=== PATIENT | male | born 1980 | race Caucasian/White ===

== ENCOUNTER 2021-05-05 09:55 | Outpatient (RCR) | payer OTHER, SELFPAY ==
[2021-05-05] MEDS: FAMOTIDINE 20 MG TABLET PO (16:04)
[2021-05-05] MEDS: diphenhydrAMINE HCl CAP 25 MG CAPSULE PO (16:04)
[2021-05-05] MEDS: ACETAMINOPHEN 325 MG TABLET 650 MG PO (16:04)
[2021-05-05 16:09] VITALS: BP 138/81; PULSE 77; RESP 20; TEMP 36.9; O2SAT 99
[2021-05-05 17:06] VITALS: BP 142/77
--- NOTE | 2021-05-06 10:12 | PC.NURSE ---
Called Mr Villanueva stated he had an upset stomach last night with low grade fever,and he is doing well today. He has no other questions at this time.
== END 2021-05-05 17:00 ==
LOC: AMCINF 09:55
PROVIDERS: PCP Family Medicine; Visit Provider Internal Medicine Hematology & Oncology
DX: U07.1 COVID-19 (principal)
CPT/HCPCS: A9270; M0243; Q0244

== ENCOUNTER 2021-09-19 12:34 | Emergency (ER) | payer OTHER, SELFPAY ==
[2021-09-19 12:45] VITALS: BP 148/79; PULSE 92; RESP 18; TEMP 37.2; O2SAT 99
--- NOTE | 2021-09-19 13:55 | ED.GENADULT ---
HPI - General Adult General Chief complaint: Skin/Abscess/Foreign Body Stated complaint: spot on top of head and spreading down Source: patient Mode of arrival: ambulatory Limitations: no limitations History of Present Illness HPI narrative: Patient presents for evaluation of painful lesions to the left side of the face and scalp that started five days ago. He denies any new lotions, soaps, detergents, topical products. He states the lesions have a blistered appearance. He has not conducted any work outdoors where he could have been exposed to poison andrea/oak/sumac. He has some mild pruritis but states they are more painful than pruritic. He rates pain 4/10 in severity. He did have chickenpox in the past. He does not wear glasses or contacts. Over the past 24 hrs he has felt some irritation in left eye and mild blurred vision. No other visual disturbance. He reports some lesions to left eyebrow. He has not been using any therapies to assist with his symptoms. Related Data Home Medications Medication Instructions Recorded Confirmed amlodipine 5 mg PO DAILY 05/11/19 05/05/21 atorvastatin 40 mg PO DAILY 05/11/19 05/05/21 fenofibrate nanocrystallized 145 mg PO DAILY 05/11/19 05/05/21 metformin 500 mg PO BID 05/11/19 05/05/21 omega-3 fatty acids-fish oil [Fish 1 cap PO DAILY 05/11/19 05/05/21 Oil] vitamin B complex [B 1 tablet PO DAILY 05/11/19 05/05/21 Complex-Vitamin B12] Allergies Allergy/AdvReac Type Severity Reaction Status Date / Time Penicillins Allergy Mild rash/hives Verified 05/05/21 16:03 Review of Systems Review of Systems: CONSTITUTIONAL: Denies fever, chills, or sweats. EYES:Reports some irritation of left eye with mild blurred vision. Denies redness ENT: Denies rhinorrhea, congestion, sore throat, or otalgia. CARDIOVASCULAR: Denies chest pain, palpitations, or edema. RESPIRATORY: Denies cough or dyspnea. GASTROINTESTINAL: Denies abdominal pain, nausea, vomiting, or diarrhea. GENITOURINARY: Denies dysuria or hematuria. SKIN: Reports painful lesions to left side of the face and scalp MUSCULOSKELETAL: Denies back pain, joint pain, or myalgia. NEUROLOGIC: Denies headache, numbness, dizziness, or weakness. PSYCHIATRIC: Denies anxiety or depression. [facility] Past Medical History Medical History Diabetes mellitus, type II HLD (hyperlipidemia) HTN (hypertension) Scalp cyst Shingles Surgical History Surgical History History of placement of ear tubes Hx of tonsillectomy Family History Family History Mother Diabetes mellitus Hypertension Social History Social History Smoking packs per day: 0.5 Smoking cigarettes per day: 10.0 Years smoked: 25 Smoking pack-years: 12.50 Smoking status: Current every day smoker Tobacco type: cigarettes Substance use: never Living arrangements: with family Gender identity (if verbalized by the patient): Male Spiritual care concerns: No Exam Narrative: GENERAL: Well-appearing, well-nourished, and in no acute distress. HEAD: Normocephalic, atraumatic. EYES: PERRLA and EOMI. No dye uptake noted with fluorescein stain and Wood's lamp evaluation ENT: Nares clear, no rhinorrhea or epistaxis. Mucous membranes moist. Oropharynx without tonsillar hypertrophy exudate or other lesions. Bilateral TMs pearly rubalcava nonbulging NECK: Supple. No adenopathy or masses. No carotid bruits or JVD CHEST: Clear to auscultation. No respiratory distress. No wheezes rales or rhonchi HEART: Regular rate and rhythm. No murmur heard. Normal peripheral pulses. ABDOMEN: Soft, nontender, nondistended, normal active bowel sounds. EXTREMITIES: Normal range of motion. No edema. SKIN: Erythematous vesicular rash to the left side of the fr
== END 2021-09-19 13:28 | disposition home or self-care (01) ==
PROVIDERS: Emergency Provider Nurse Practitioner; PCP Family Medicine
DX: B02.9 Zoster without complications (principal); E11.9 Type 2 diabetes mellitus without complications; E78.5 Hyperlipidemia, unspecified; I10 Essential (primary) hypertension; F17.210 Nicotine dependence, cigarettes, uncomplicated
CPT/HCPCS: 99213; A9270; G0463

== ENCOUNTER 2021-12-24 16:26 | Emergency (ER) | payer OTHER, SELFPAY ==
--- NOTE | ~2021-12-24 | XR_ITS ---
EXAMINATION: XR chest 2V 12/24/2021 17:03 INDICATION: Cough for 2-3 weeks. Bronchitis. PROCEDURE: 2 view chest COMPARISON: No prior studies for comparison. FINDINGS: The lungs are clear. The cardiomediastinal silhouette is within normal limits. There are no pleural effusions. There is no pneumothorax suspected. IMPRESSION: 1: NO ACUTE CARDIOPULMONARY DISEASE. Reviewed, dictated and finalized at location A.
[2021-12-24 16:33] VITALS: BP 145/78; PULSE 74; RESP 16; TEMP 36.6; O2SAT 100
--- NOTE | 2021-12-24 17:02 | ED.URI ---
HPI - URI/Sore Throat General Chief Complaint: Upper Respiratory Infection Stated Complaint: Chest Congestion Time Seen by Provider: 12/24/21 17:00 History of Present Illness HPI Narrative: 41 y/o male with hx diabetes presented for c/o worsening sob and wheezing over the last 3 weeks, symptoms worsening for one week. Cough is nonproductive, endorses fatigue and sob with exertion. Denies cp, palpitations, n/v/d fever or chills. Taking mucinex for symptoms. States he had pneumonia after covid one year ago and feels lungs have not been the same since then. Smokes 1/2ppd. Related Data Home Medications Medication Instructions Recorded Confirmed amlodipine 5 mg tablet 5 mg PO DAILY 05/11/19 12/24/21 atorvastatin 40 mg tablet 40 mg PO DAILY 05/11/19 12/24/21 metformin 500 mg tablet 500 mg PO BID 05/11/19 12/24/21 Allergies Allergy/AdvReac Type Severity Reaction Status Date / Time Penicillins Allergy Mild rash/hives Verified 12/24/21 16:44 Review of Systems Review of Systems: CONSTITUTIONAL: Denies body aches, fever, chills, or sweats. EYES: Denies visual changes, redness, or discharge. ENT: Denies rhinorrhea, congestion, or otalgia. CARDIOVASCULAR: Denies chest pain, palpitations, or edema. RESPIRATORY: reports sob, cough GASTROINTESTINAL: Denies abdominal pain, nausea, vomiting, or diarrhea. SKIN: Denies rash, itching, or wounds. MUSCULOSKELETAL: Denies back pain, joint pain, or myalgia. NEUROLOGIC: Denies headache PMFSH Past Medical History Medical History Diabetes mellitus, type II HLD (hyperlipidemia) HTN (hypertension) Scalp cyst Shingles Surgical History Surgical History History of placement of ear tubes Hx of tonsillectomy Family History Family History Mother Diabetes mellitus Hypertension Social History Social History Smoking packs per day: 0.5 Smoking cigarettes per day: 10.0 Years smoked: 25 Smoking pack-years: 12.50 Smoking status: Current every day smoker Tobacco type: cigarettes Substance use: never Gender identity (if verbalized by the patient): Male Spiritual care concerns: No Exam Narrative: GENERAL: well-appearing EYES: conjunctivae clear ENT: Mucous membranes moist. TM pearly rubalcava with normal light reflex bilaterally; no tragal tenderness. Oropharynx erythematous without lesions. CHEST: Clear to auscultation, breath sounds equal. No respiratory distress, speaks in full sentences. HEART: Regular rate and rhythm. No murmur heard. SKIN: Warm, dry, no rash. NEURO: Alert and oriented x3. Course Course Emergency Course: Patient is aware of diagnosis, understands and agrees to treatment plan. Anticipatory guidance given. Patient agrees to follow-up as directed and is aware of reasons to seek care at the emergency department. Portions of this record may have been created with voice recognition software Level of Care: Express Care Visit Vital Signs Vital signs: Vital Signs Temperature 97.9 F 12/24/21 16:33 Pulse Rate 74 12/24/21 16:33 Respiratory Rate 16 12/24/21 16:33 Blood Pressure 145/78 H 12/24/21 16:33 Pulse Oximetry 100 12/24/21 16:33 Oxygen Delivery Room Air 12/24/21 16:33 Temperature 97.9 F 12/24/21 16:33 Pulse Rate 74 12/24/21 16:33 Respiratory Rate 16 12/24/21 16:33 Blood Pressure 145/78 H 12/24/21 16:33 Pulse Oximetry 100 12/24/21 16:33 Oxygen Delivery Room Air 12/24/21 16:33 MDM - URI/Sore Throat MDM Narrative Medical decision making narrative: CXR negative, reviewed with pt and advised smoking cessation and supportive treatments. Patient is appropriate for outpatient treatment and follow-up. Differential Diagnosis Differential diagnosis: Likely upper respiratory inf
== END 2021-12-24 17:15 | disposition home or self-care (01) ==
PROVIDERS: Emergency Provider Nurse Practitioner Family; PCP Family Medicine
DX: J40 Bronchitis, not specified as acute or chronic (principal); F17.210 Nicotine dependence, cigarettes, uncomplicated; E11.9 Type 2 diabetes mellitus without complications; E78.5 Hyperlipidemia, unspecified; I10 Essential (primary) hypertension; Z79.84 Long term (current) use of oral hypoglycemic drugs
CPT/HCPCS: 71046; 99213; G0463

== ENCOUNTER 2022-07-08 15:36 | Emergency (ER) | payer BC, SELFPAY ==
--- NOTE | 2022-07-08 15:39 | ED.URI ---
HPI - URI/Sore Throat General Chief Complaint: Upper Respiratory Infection Stated Complaint: Chest Congestion/Cough Time Seen by Provider: 07/08/22 15:39 Source: patient and RN notes reviewed History of Present Illness HPI Narrative: Patient is a 42-year-old male who presents to urgent care with complaints of sinus congestion, cough, headache and pressure. Patient states he feels like it is now settling in his chest with cough. Patient states that he has been using Mucinex and Tylenol. States it has been ongoing for approximately 10 days. Denies any fevers, nausea or vomiting. No other acute complaints. No acute distress noted. Patient aware of the plan of care. Some parts of this dictation were generated by voice recognition software and may contain typographical and/or grammatical inaccuracies. Related Data Home Medications Medication Instructions Recorded Confirmed amlodipine 5 mg tablet 5 mg PO DAILY 05/11/19 07/08/22 atorvastatin 40 mg tablet 40 mg PO DAILY 05/11/19 07/08/22 metformin 500 mg tablet 500 mg PO BID 05/11/19 07/08/22 Allergies Allergy/AdvReac Type Severity Reaction Status Date / Time Penicillins Allergy Mild rash/hives Verified 07/08/22 15:59 Review of Systems Review of Systems: CONSTITUTIONAL: Denies fever, chills, or sweats. EYES: Denies visual changes, redness, or discharge. ENT: Reports rhinorrhea, congestion/pressure, postnasal drainage CARDIOVASCULAR: Denies chest pain, palpitations, or edema. RESPIRATORY: Reports cough without dyspnea GASTROINTESTINAL: Denies abdominal pain, nausea, vomiting, or diarrhea. GENITOURINARY: Denies dysuria or hematuria. SKIN: Denies rash or itching. MUSCULOSKELETAL: Denies back pain, joint pain, or myalgia. NEUROLOGIC: Denies headache, numbness, or weakness. All other systems reviewed are negative, except as documented in HPI. [facility] Past Medical History Medical History Diabetes mellitus, type II HLD (hyperlipidemia) HTN (hypertension) Scalp cyst Shingles Surgical History Surgical History History of placement of ear tubes Hx of tonsillectomy Family History Family History Mother Diabetes mellitus Hypertension Social History Social History Smoking packs per day: 0.5 Smoking cigarettes per day: 10.0 Years smoked: 25 Smoking pack-years: 12.50 Smoking status: Current every day smoker Tobacco type: cigarettes Substance use: never Living arrangements: with family Gender identity (if verbalized by the patient): Male Spiritual care concerns: No Comments At the time of my signature, I reviewed and agree with the nursing past medical, surgical, social, and family history. There is no relevant family history pertinent to the patient complaint. Exam Narrative: GENERAL: This is a well-nourished, well-developed patient, in no apparent distress. HEAD: normocephalic, atraumatic. EYES: PERRL. Sclera clear/white. Vision is grossly intact. EARS: External ears normal, auditory canals clear and without drainage, TMs normal without perforation. Hearing grossly intact. NOSE: External nose normal with no obvious nasal discharge, nares without redness, clear to yellow rhinorrhea. THROAT: Mucous membranes moist, posterior pharynx clear. Moderate postnasal drainage NECK: Neck supple, non-tender without lymphadenopathy CARDIOVASCULAR: Regular rate and rhythm without murmurs, gallops, or rubs. RESPIRATORY: Clear to auscultation. Breath sounds equal bilaterally. No wheezes, rales, or rhonchi. SKIN: warm, intact with no suspicious lesions or rash, good texture and turgor. NEURO: awake, alert, and oriented to person, place and time. There were no obvious focal neurologic abnormalities. EXTREMITIES: No clubbing, cyanosis, or edema.
[2022-07-08 15:45] VITALS: BP 154/87; PULSE 81; RESP 16; TEMP 36.8; O2SAT 98
== END 2022-07-08 16:18 | disposition home or self-care (01) ==
PROVIDERS: Emergency Provider Nurse Practitioner Family; PCP Family Medicine
DX: J32.9 Chronic sinusitis, unspecified (principal); F17.210 Nicotine dependence, cigarettes, uncomplicated; E11.9 Type 2 diabetes mellitus without complications; E78.5 Hyperlipidemia, unspecified; I10 Essential (primary) hypertension
CPT/HCPCS: 99213; G0463